=== PATIENT | female | born 1955 | race Caucasian/White ===

== ENCOUNTER 2017-07-16 03:51 | Observation (INO) ==
[2017-07-16] MEDS ORDERED: Aspirin 325 MG TABLET PO ONE (04:14)
[2017-07-16 04:32] LABS: INR 1.1; Prothrombin Time 12.2 Seconds (9.4-12.1)
[2017-07-16 04:33] LABS: Basophils # 0.1 K/mcL (0.0-0.2); Basophils % 1.2 %; Eosinophils # 0.1 K/mcL (0.0-0.6); Eosinophils % 2.4 %; Hematocrit 35.2 % (35.3-44.9); Hemoglobin 11.8 g/dL (11.5-15.4); Immature Granulocytes % 0.3 % (0-4); Lymphocytes # 1.6 K/mcL (0.6-4.6); Mean Corpuscular HGB Conc 33.5 g/dL (31.6-35.5); Mean Corpuscular Hemoglobin 32.5 pg (28.0-33.3); Mean Platelet Volume 10.2 fL (9.4-12.4); Monocytes # 0.5 K/mcL (0.0-1.3); Monocytes % 8.7 %; Neutrophils # 3.4 K/mcL (1.6-8.9); Platelet Count 295 K/mcL (140-400); Red Blood Count 3.63 M/mcL (3.82-4.97); Red Cell Distribution Width 12.4 % (11.5-14.5); Segmented Neutrophils % 59.4 %
[2017-07-16 04:34] LABS: Activated Partial Thrombo Time 33.4 Seconds (26.0-36.0)
[2017-07-16 04:39] LABS: BUN/Creatinine Ratio 20 (6-26); Blood Urea Nitrogen 18 mg/dL (7-20); Calcium 9.6 mg/dL (8.6-10.8); Carbon Dioxide 23 mEq/L (19-29); Chloride 107 mEq/L (98-109); Glucose 103 mg/dL (70-99); Osmolality,Calculated 296 (280-300); Potassium 3.9 mEq/L (3.5-4.5); Sodium 142 mEq/L (136-145); eGFR For African Americans > 60 (> 60); eGFR For Non-African Americans > 60 (> 60)
--- NOTE | 2017-07-16 04:59 | Emergency Department Note ---
Disposition Clinical Impression: Near syncope Chest pain Qualifiers: Chest pain type: unspecified Qualified Code(s): R07.9 - Chest pain, unspecified Disposition: Admitted As Inpatient Condition: Fair Referrals: Claudio Tate MD [Primary Care Provider] - Forms: ED Satisfaction Letter Time of Disposition: 06:42 Chest Pain HPI - General Chief Complaint: ED Chest Pain Stated Complaint: Chest Pain Time Seen by Provider: 07/16/17 03:56 Source: patient Limitations: no limitations Vital Signs Reviewed: Yes Nursing Notes Reviewed: Yes - History of Present Illness HPI Narrative: 61-year-old female history of hypertension, CAD, GERD, hyperlipidemia diabetes, presents with chest pain. Patient was actually being evaluated after she had seen her son in the emergency department, she got up felt flushed short of breath diaphoretic and had left-sided chest pain radiating into her left back and arm. She described this as 8 out of 10, worse with standing and activity. States that it may be anxiety related. She has not had a recent stress test or catheterization. She has had multiple ablations for atrial fibrillation, she is anticoagulated on Xarelto. no hx of DVTs or PEs. 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 Denies: vomiting, sense of impending doom - Related Data Home Medications Medication Instructions Recorded Confirmed Aromatic Cascara Fluid Extract 450 mg PO HS 03/19/16 07/16/17 [Cascara Sagrada] Aspirin Enteric Coated [Aspirin EC] 81 mg PO DAILY 03/19/16 07/16/17 Atorvastatin Calcium [Lipitor] 20 mg PO HS 03/19/16 07/16/17 Calcium Carbonate [Calcium] 250 mg PO DAILY 03/19/16 07/16/17 Diltiazem HCl [Diltiazem ER] 180 mg PO HS 03/19/16 07/16/17 Duloxetine HCl [Cymbalta] 90 mg PO DAILY 03/19/16 07/16/17 Furosemide [Lasix] 40 mg PO DAILY 03/19/16 07/16/17 Gabapentin [Neurontin] 300 mg PO TID 03/19/16 07/16/17 Lactobacillus Acidophilus 1 tab PO DAILY 03/19/16 07/16/17 [Probiotic] Losartan Potassium [Cozaar] 100 mg PO DAILY 03/19/16 07/16/17 Multivitamin [Multi-Day Vitamins] 0.5 tab PO BID 03/19/16 07/16/17 Omeprazole [PriLOSEC] 40 mg PO DAILY 03/19/16 07/16/17 Potassium Chloride [K-Tab ER] 20 meq PO DAILY 03/19/16 07/16/17 Rivaroxaban [Xarelto] 20 mg PO DAILY 03/19/16 07/16/17 Tizanidine HCl 8 mg PO HS 03/19/16 07/16/17 Trazodone HCl 50 - 100 mg PO HS PRN 03/19/16 07/16/17 Acetaminophen [Non-Aspirin] 325 mg PO Q6H 07/16/17 07/16/17 Amitriptyline [Elavil] 25 mg PO HS 07/16/17 07/16/17 Cholecalciferol (D-3) [Vitamin D] 2,000 unit PO DAILY 07/16/17 07/16/17 Ferrous Gluconate 324 mg PO BID 07/16/17 07/16/17 Sotalol [Betapace] 80 mg PO Q12HR 07/16/17 07/16/17 Tolterodine LA (24 HR) [Detrol LA] 2 mg PO DAILY 07/16/17 07/16/17 Previous Rx's Medication Instructions Recorded Ondansetron [Zofran] 4 mg PO Q8HR PRN #15 tablet 03/23/16 Allergies Allergy/AdvReac Type Severity Reaction Status Date / Time Sulfa (Sulfonamide Allergy See Verified 07/16/17 03:52 Antibiotics) Comments All systems ED: reviewed and negative except as stated. Review of Systems: As Per HPI Constitutional: Denies: fever, chills Eyes: Denies: eye pain ENT ED: Denies: ear pain Cardiovascular: Reports: as per HPI, chest pain, palpitations Respiratory: Reports: as per HPI, cough, dyspnea Gastrointestinal: Denies: abdominal pain, nausea Genitourinary: Denies: urgency Musculoskeletal: Denies: back pain Integumentary: Denies: rash, abrasion Neurological: Denies: headache Chest Pain PMH - Past Medical History Medical history: Reports: arthritis, atrial fibrillation, coronary artery disease, GERD, hyperlipidemia, hypertension Surgical history: Reports: cholecystectomy, hysterectomy, orthopedic, other, other Psychiatric history: Reports: anxiety, depression TRANSPORTATION ASSOCIATE history: 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 Neck: normal inspection, neck is supple, no JVD Resp: normal chest inspection, CTA bilaterally, no resp distress, no wheezes/ rales/rhonchi CV: RRR, no murmurs/gallops/rubs, S1 and S2 heard Extremity: +2 bilateral radial and posterial tibial pulses, no pedal edema GI: normal inspection, Soft, NTND, no peritoneal signs, no palpable abdominal aortic aneurysm Back: normal inspection, no tenderness to palpation Neuro: A&O3, no gross motor or sensory deficits bilaterally MSK: normal inspection, bilateral UE and LE with normal ROM mild ecchymosis to the right shoulder with good range of motion negative apprehension test Skin: No rashes, skin warm, dry, intact - General Limitations: no limitations General appearance: alert Course Course Narrative: 61-year-old female with near syncope and chest pain in the emergency department , chest pain workup with CBC BMP troponin EKG chest x-ray ordered as well as right shoulder given that she fallen about a week ago on her right shoulder there is no deformity - Reevaluation(s) Reevaluation #1: Patient's chest pain workup is negative, she is admitted to the hospitalist service in stable condition telemetry, nitroglycerin did nitroglycerin did improve her pain, she was given aspirin troponin negative EKG with no ischemic changes Vital Signs Temperature 98.3 F 07/16/17 03:53 Pulse Rate 81 07/16/17 03:53 Respiratory Rate 18 07/16/17 03:53 Blood Pressure 127/73 07/16/17 03:53 O2 Sat by Pulse Oximetry 98 07/16/17 03:53 Temperature 98.3 F 07/16/17 03:53 Pulse Rate 67 07/16/17 05:45 Respiratory Rate 16 07/16/17 05:45 Blood Pressure 129/83 07/16/17 05:45 O2 Sat by Pulse Oximetry 98 07/16/17 05:45 Oxygen Delivery Oxygen Delivery Room Air Chest Pain - Differential Diagnosis Likely: pneumothorax, atypical chest pain, chest pain - Medical Records Medical records reviewed: Yes I reviewed the patient's medical records. - Lab Data Lab results reviewed: Yes I reviewed the patient's lab results. Result diagrams: 07/16/17 04:05 07/16/17 04:05 Lab Results 07/16/17 07/16/17 07/16/17 Range/Units 04:05 04:05 04:05 WBC 5.8 (4.3-11.1) K/mcL RBC 3.63 L (3.82-4.97) M/mcL Hgb 11.8 (11.5-15.4) g/dL Hct 35.2 L (35.3-44.9) % MCV 97.0 (83.0-100.0) fL MCH 32.5 (28.0-33.3) pg MCHC 33.5 (31.6-35.5) g/dL RDW 12.4 (11.5-14.5) % Plt Count 295 (140-400) K/mcL MPV 10.2 (9.4-12.4) fL Immature Gran % 0.3 (0-4) % Seg Neutrophils % 59.4 % Lymphocytes % 28.0 % Monocytes % 8.7 % Eosinophils % 2.4 % Basophils % 1.2 % Neutrophils # 3.4 (1.6-8.9) K/mcL Lymphocytes # 1.6 (0.6-4.6) K/mcL Monocytes # 0.5 (0.0-1.3) K/mcL Eosinophils # 0.1 (0.0-0.6) K/mcL Basophils # 0.1 (0.0-0.2) K/mcL PT 12.2 H (9.4-12.1) Seconds INR 1.1 APTT 33.4 (26.0-36.0) Seconds D-Dimer 220 (0-500) ng/mLFEU Sodium 142 (136-145) mEq/L Potassium 3.9 (3.5-4.5) mEq/L Chloride 107 (98-109) mEq/L Carbon Dioxide 23 (19-29) mEq/L BUN 18 (7-20) mg/dL Creatinine 0.91 (0.57-1.11) mg/dL Est GFR ( Amer) > 60 (> 60) Est GFR (Non-Af Amer) > 60 (> 60) BUN/Creatinine Ratio 20 (6-26) Glucose 103 H (70-99) mg/dL Calculated Osmolality 296 (280-300) Calcium 9.6 (8.6-10.8) mg/dL Troponin I (0-0.03) ng/mL 07/16/17 Range/Units 04:05 WBC (4.3-11.1) K/mcL RBC (3.82-4.97) M/mcL Hgb (11.5-15.4) g/dL Hct (35.3-44.9) % MCV (83.0-100.0) fL MCH (28.0-33.3) pg MCHC (31.6-35.5) g/dL RDW (11.5-14.5) % Plt Count (140-400) K/mcL MPV (9.4-12.4) fL Immature Gran % (0-4) % Seg Neutrophils % % Lymphocytes % % Monocytes % % Eosinophils % % Basophils % % Neutrophils # (1.6-8.9) K/mcL Lymphocytes # (0.6-4.6) K/mcL Monocytes # (0.0-1.3) K/mcL Eosinophils # (0.0-0.6) K/mcL Basophils # (0.0-0.2) K/mcL PT (9.4-12.1) Seconds INR APTT (26.0-36.0) Seconds D-Dimer (0-500) ng/mLFEU Sodium (136-145) mEq/L Potassium (3.5-4.5) mEq/L Chloride (98-109) mEq/L Carbon Dioxide (19-29) mEq/L BUN (7-20) mg/dL Creatinine (0.57-1.11) mg/dL Est GFR ( Amer) (> 60) Est GFR (Non-Af Amer) (> 60) BUN/Creatinine Ratio (6-26) Glucose (70-99) mg/dL Calculated Osmolality (280-300) Calcium (8.6-10.8) mg/dL Troponin I 0.01 (0-0.03) ng/mL - Radiology Data Radiology results reviewed: Yes I reviewed the patient's radiology results. Chest X-Ray 07/16/17 03:56 IMPRESSION: No acute cardiopulmonary process. D/ / Elvira Xiao MD / Elvira Xiao MD Interpreting Provider: Elvira Xiao MD Shoulder X-Ray 07/16/17 04:15 IMPRESSION: No acute osseous abnormality of the right shoulder. D/ / Chris Nieto MD / Chris Nieto MD Interpreting Provider: Chris Nieto MD - EKG Data EKG attestation: Yes I reviewed and interpreted this EKG. Rate: normal Rhythm: NSR (Vent rate 80 ME-2 O4 QRS 115 QTc 425 unchanged from previous EKG in May no ST segment elevations or depressions.) Heart Score - Score History: Moderately Suspicious EKG: Non Specific repolarisation Disturbance Age: 45-65 Risk Factors: Equal/Greater than 3 risk factor or history of atherosclerotic disease Troponin: Less than normal limit HEART Score Total: 5 Attestation Statement - Attestation Attestation: I, Matt Martin, examined this patient and my medical decision-making was reviewed with the TROUBLE TRACER/PA/Advanced Practice Nurse/Resident Physician. I agree with the documented findings, disposition and treatment plan as described except to the extent set forth below. 61-year-old female being evaluated in the emergency department for acute onset chest pain. Patient was in the emergency department with her son who likely has sepsis when she acutely developed chest pain to the left upper chest that radiated to her left shoulder. She had associated shortness of breath and nausea. Patient has a history of coronary artery disease. She is unable to recall the last time she had a stress test or cardiac catheterization. Initial troponin negative. EKG did not show evidence of STEMI. Patient will be admitted for further care and evaluation of her acute onset chest pain.
[2017-07-16] MEDS: Nitroglycerin 0.4 MG TAB.SUBL SL PRN ×3 (05:17→05:32)
[2017-07-16] MEDS ORDERED: *HR* LORazepam 0.5 MG TABLET PO ONE (10:21)
--- NOTE | 2017-07-16 12:20 | Internal Med History&Physical ---
Date of Encounter: 07/16/17 Time of Encounter: 10:00 Assessment and Plan (1) Chest pain Current visit: Yes Status: Acute -First set of cardiac biomarkers are negative and EKG with no ST/T-wave changes -Suspect secondary to anxiety/panic attacks. -We will trend cardiac biomarkers and monitor on telemetry; treat anxiety as below Qualifiers: Chest pain type: unspecified Qualified Code(s): R07.9 - Chest pain, unspecified (2) Generalized anxiety disorder Current visit: Yes Status: Acute -Suspect symptoms secondary to panic attacks. -Will give patient Ativan as needed. (3) H/O repair of right rotator cuff Current visit: No Status: Acute -Chronic pain which is stable (4) Lumbar radicular pain Current visit: No Status: Acute -Chronic lower back pain that is stable (5) Morbid obesity with BMI of 40.0-44.9, adult Current visit: No Status: Acute -Lifestyle modifications (6) DVT prophylaxis Current visit: Yes Status: Acute -Subcutaneous heparin Internal Medicine - H&P: HPI Chief complaint: Chest pain Admitted From: Home History of present illness: Patient is a 61-year-old female with past medical history significant for anxiety, hypertension, coronary artery disease, hyperlipidemia, diabetes and GERD results to the ER on 07/16/17 with chest pain. Patient reports of substernal chest discomfort which was provoked by social stressors as her son was just admitted to the hospital today. Patient admits of being admitted in the hospital in the past for panic attacks and reports of increased anxiety over the last several weeks. In the ER the first set of cardiac biomarkers were negative and no ST/T-wave changes on EKG. Patient will be admitted to the medical surgical floor for ACS rule out. Past Med Surg Social Fam HX - Past Medical History Medical history: arthritis, atrial fibrillation, coronary artery disease, GERD, hyperlipidemia, hypertension Psychiatric history: anxiety, depression - Past Surgical History Surgical History: cholecystectomy, hysterectomy, orthopedic, other - Social History Smoking Status: Never smoker Smokeless Tobacco Status: No Alcohol use: occasionally Drug use: none - Family History Sister Living Status: Age at : 43 Cause of : Breast CA Hx Family Cancer: Yes Internal Medicine - H&P: Meds Aromatic Cascara Fluid Extract [Cascara Sagrada] 450 mg PO HS 03/19/16 [History] Aspirin Enteric Coated [Aspirin EC] 81 mg PO DAILY 03/19/16 [History] Atorvastatin Calcium [Lipitor] 20 mg PO HS 03/19/16 [History] Calcium Carbonate [Calcium] 250 mg PO DAILY 03/19/16 [History] Diltiazem HCl [Diltiazem ER] 180 mg PO HS 03/19/16 [History] Duloxetine HCl [Cymbalta] 90 mg PO DAILY 03/19/16 [History] Furosemide [Lasix] 40 mg PO DAILY 03/19/16 [History] Gabapentin [Neurontin] 300 mg PO TID 03/19/16 [History] Lactobacillus Acidophilus [Probiotic] 1 tab PO DAILY 03/19/16 [History] Losartan Potassium [Cozaar] 100 mg PO DAILY 03/19/16 [History] Multivitamin [Multi-Day Vitamins] 0.5 tab PO BID 03/19/16 [History] Omeprazole [PriLOSEC] 40 mg PO DAILY 03/19/16 [History] Potassium Chloride [K-Tab ER] 20 meq PO DAILY 03/19/16 [History] Rivaroxaban [Xarelto] 20 mg PO DAILY 03/19/16 [History] Tizanidine HCl 8 mg PO HS 03/19/16 [History] Trazodone HCl 50 - 100 mg PO HS PRN 03/19/16 [History] Ondansetron [Zofran] 4 mg PO Q8HR PRN #15 tablet 03/23/16 [Rx] Amitriptyline [Elavil] 25 mg PO HS 07/16/17 [History] Cholecalciferol (D-3) [Vitamin D] 2,000 unit PO DAILY 07/16/17 [History] Ferrous Gluconate 324 mg PO BID 07/16/17 [History] Sotalol [Betapace] 80 mg PO Q12HR 07/16/17 [History] Tolterodine LA (24 HR) [Detrol LA] 2 mg PO DAILY 07/16/17 [History] 3 Allergy/AdvReac Type Severity Reaction Status Date / Time Sulfa (Sulfonamide Allergy See Verified 07/16/17 03:52 Antibiotics) Comments All Systems PM: A 10-system review of systems was performed and is negative for pertinent findings except as documented above in the HPI. - Constitutional Vitals: Temp Pulse Resp BP Pulse Ox 98.3 F 73 17 143/72 97 07/16/17 11:21 07/16/17 11:21 07/16/17 12:09 07/16/17 12:09 07/16/17 11:21 General appearance: Present: A&O X 3, no acute distress - Head Head exam: Present: normocephalic - Eye Eye exam: Present: normal appearance - ENT ENT exam: Present: mucous membranes moist - Respiratory Respiratory exam: Present: CTAB. Absent: accessory muscle use, rales, rhonchi, wheezes - Cardiovascular Cardiovascular exam: Present: RRR, +S1, +S2. Absent: diastolic murmur, gallop, rubs, systolic murmur - GI/Abdominal GI/Abdominal exam: Present: normal bowel sounds, soft, no peritoneal signs. Absent: distended, tenderness - Neurological Exam Neurological exam: Present: CN II-XII intact, oriented X3 - Psychiatric Psychiatric exam: Present: anxious - Skin Skin exam: Present: normal color Internal Med - H&P Results - Labs CBC & Chem 7: 07/16/17 04:05 07/16/17 04:05 Labs: Cardiac Enzymes 07/16/17 Range/Units 10:43 Troponin I 0.00 (0-0.03) ng/mL
[2017-07-16] MEDS ORDERED: Naloxone 0.4 MG/ML INJ IVP PRN (12:27)
[2017-07-16] MEDS ORDERED: Ondansetron ODT 4 MG TAB.RAPDIS PO PRN (15:41)
[2017-07-16] MEDS ORDERED: Ketorolac 15 MG/ML VIAL IVP ONE (16:12)
[2017-07-16] MEDS: tiZANidine 4 MG TABLET PO SCH (21:03)
[2017-07-16] MEDS: Gabapentin 300 MG CAPSULE PO SCH (21:03)
[2017-07-16] MEDS: *HR* Morphine 2 MG/ML SYRINGE IVP PRN (21:03)
[2017-07-16] MEDS: Multivit/Ca/Min/Fe/FA 1 TAB TABLET PO SCH (21:03)
[2017-07-16] MEDS: Diltiazem CD (24hr) 180 MG CAPSULE PO SCH (21:03)
[2017-07-16] MEDS: [UNRECOGNIZED DRUG - OTHER] PO SCH (21:08)
[2017-07-17 01:24] LABS: Basophils # 0.1 K/mcL (0.0-0.2); Basophils % 1.1 %; Eosinophils # 0.1 K/mcL (0.0-0.6); Eosinophils % 2.2 %; Hematocrit 31.5 % (35.3-44.9); Hemoglobin 10.3 g/dL (11.5-15.4); Immature Granulocytes % 0.4 % (0-4); Lymphocytes # 1.2 K/mcL (0.6-4.6); Lymphocytes % 26.8 %; Mean Corpuscular HGB Conc 32.7 g/dL (31.6-35.5); Mean Corpuscular Hemoglobin 31.8 pg (28.0-33.3); Mean Corpuscular Volume 97.2 fL (83.0-100.0); Mean Platelet Volume 11.1 fL (9.4-12.4); Monocytes # 0.6 K/mcL (0.0-1.3); Neutrophils # 2.6 K/mcL (1.6-8.9); Platelet Count 228 K/mcL (140-400); Red Blood Count 3.24 M/mcL (3.82-4.97); Red Cell Distribution Width 12.4 % (11.5-14.5); Segmented Neutrophils % 56.5 %
[2017-07-17 01:37] LABS: BUN/Creatinine Ratio 18 (6-26); Blood Urea Nitrogen 19 mg/dL (7-20); Calcium 9.1 mg/dL (8.6-10.8); Carbon Dioxide 22 mEq/L (19-29); Chloride 108 mEq/L (98-109); Glucose 101 mg/dL (70-99); Osmolality,Calculated 292 (280-300); Potassium 4.1 mEq/L (3.5-4.5); Sodium 140 mEq/L (136-145); eGFR For African Americans > 60 (> 60); eGFR For Non-African Americans 52 (> 60)
[2017-07-17] MEDS: *HR* Morphine 2 MG/ML SYRINGE IVP PRN (03:28)
--- NOTE | 2017-07-17 06:49 | Electrocardiograph Report ---
[place] [address] Test Date: 2017-07-16 Pat Name: Dhara Busby Department: 103 Room: 3B35 Gender: F Mdm Sr: GINNY : 1955 Requested By: Matt Martin Order Number: [id number] Reading MD: Keyanna Tovar Measurements Intervals [place] Rate: 80 P: 81 DE: 204 QRS: -11 QRSD: 115 T: 66 QT: 389 QTc: 425 Interpretive Statements SINUS RHYTHM POSSIBLE ANTERIOR MYOCARDIAL INFARCTION [30 ms Q WAVE IN V3/V4, OR R < 0.2 mV IN V4], OF INDETERMINATE AGE Electronically Signed On 07-17-2017 6:46:56 EST by Keyanna Tovar
[2017-07-17] MEDS ORDERED: GI Cocktail 40 ML EACH PO ONE (09:44)
[2017-07-17] MEDS: Furosemide 40 MG TABLET PO SCH (09:46)
[2017-07-17] MEDS: Aspirin Enteric Coated 81 MG Tablet PO SCH (09:46)
[2017-07-17] MEDS: Multivit/Ca/Min/Fe/FA 1 TAB TABLET PO SCH (09:46)
[2017-07-17] MEDS: *HR* Rivaroxaban 10 MG TABLET PO SCH (09:46)
[2017-07-17] MEDS: Lactobacillus 1 EACH CAP.SPRINK PO SCH (09:46)
[2017-07-17] MEDS: Gabapentin 300 MG CAPSULE PO SCH ×3 (09:46→20:31)
[2017-07-17] MEDS: Cholecalciferol (D-3) 1,000 UNIT TABLET PO SCH (09:46)
[2017-07-17] MEDS ORDERED: MOM Conc 10 ML UD.LIQ PO ONE (13:02)
[2017-07-17] MEDS: Acetaminophen 325 MG TABLET PO PRN (13:13)
[2017-07-17] MEDS ORDERED: traZODone 50 MG TABLET PO PRN (14:41)
--- NOTE | 2017-07-17 14:44 | Internal Med Progress Note ---
Date of Encounter: 07/17/17 Time of Encounter: 09:25 - Assessment and plan (1) Chest pain Current Visit: Yes Status: Acute Assessment and plan: The patient reports 2-3 week history of left upper quadrant tenderness/pain. She describes it as feeling sore/tight. Is exquisitely tender to palpation. She also reports midsternal chest pain that radiates inferiorly into epigastric area and into left upper quadrant. She reports associated nausea, diaphoresis, and shortness of breath with the pain. She reports that it does not happen daily and there may be some significance in relation to food. The pain also sometimes radiates into her left posterior shoulder/scapula area. He has attempted a GI cocktail for relief today. It was not successful. She already takes PPI daily. She does report a significant cardiac history on her maternal side. Father when she was 3 years old and is unsure of his history. Recently sister of [place], mother also with coronary artery disease. Patient reports increased fatigue for several months. Also reports significant stressors at home that could be contributing to chest pain. Onset of this episode of chest pain was while she was visiting her son who is also admitted on this unit for a viral illness, I believe. Her troponins were negative 3. EKG was normal sinus rhythm with a rate of 80, report indicates possible prior [place]. Echo results are still pending. I have ordered a limited echo today. I feel due to her family history, as well as her risk factors including obesity, age, female, as well as hypertension, stress test would bE appropriate. Pt has been requesting Morphine throughout the day for what appears to be abdominal pain. Continue Omeprazole Stress test ordered for a.m. 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 pt has had rotator cuff repair to same. Pt reports increased discomfort and agrees that it is most likely from lying in the bed for so long. I have encouraged pt to get up and move about, sit it chair. Home medications have been continued. Pt has been requesting Morphine for pain. Continue medications as ordered. (3) Morbid obesity with BMI of 40.0-44.9, adult Current Visit: Yes Status: Chronic Assessment and plan: Chronic. Lifestyle changes. (4) Generalized anxiety disorder Current Visit: Yes Status: Acute Assessment and plan: Chronic. Continue home medications. Patient reports increased stress at home with family. Son was admitted to the hospital on the same unit, this patient's chest pain began. (5) DVT prophylaxis Current Visit: Yes Status: Acute Assessment and plan: Heparin subcutaneous daily. - Time Spent With Patient less than 15 minutes - Subjective Interval history: Pt was seen and assessed at 925 am. at bs. Pt reports LUQ tenderness and pain, also describes as sore/tight for 2 weeks. Pt also reports intermittent substernal pain with radiation inferior to epigastric area and to LUQ where she indicates pain is, sometimes with radiation to left posterior shoulder/scapula area. She reports associated nausea, diaphoresis, and SOB with pain. Indicates that there may be some relation to food. She also reports increased fatigue and social stressors for months. - Constitutional Vitals: Temp Pulse Resp BP Pulse Ox 98.1 F 64 16 146/84 97 07/17/17 10:54 07/17/17 10:54 07/17/17 10:54 07/17/17 10:54 07/17/17 10:54 General appearance: Present: cooperative, A&O X 3, no acute distress, answers questions appropriately - Head Head exam: Present: atraumatic, normal inspection, normocephalic - Eye Eye exam: Present: conjuntiva pink, sclera anicteric - Neck Neck exam general surgery: Present: normal inspection, supple, trachea midline. Absent: lymphadenopathy, tenderness - Respiratory Respiratory exam: Present: CTAB. Absent: accessory muscle use, chest wall tenderness, rales, respiratory distress, rhonchi, wheezes - Cardiovascular Cardiovascular exam: Present: RRR, +S1, +S2. Absent: diastolic murmur, gallop, rubs, systolic murmur - GI/Abdominal GI/Abdominal exam: Present: normal bowel sounds, soft, tenderness. Absent: distended, hepatomegaly - Extremities Exam Extremities exam: Present: normal capillary refill, warm, radial pulses palpable and symmetrical. Absent: calf tenderness, cyanotic, pedal edema, tenderness - Neurological Exam Neurological exam: Present: alert, oriented X3, no focal deficits. Absent: facial droop, speech deficit - Skin Skin exam: Present: dry, intact, normal color, warm. Absent: rash Internal Medicine: Result - Labs CBC & Chem 7: 07/17/17 00:30 07/17/17 00:30 Labs: Short CBC 07/17/17 Range/Units 00:30 WBC 4.6 (4.3-11.1) K/mcL Hgb 10.3 L D (11.5-15.4) g/dL Hct 31.5 L (35.3-44.9) % Plt Count 228 (140-400) K/mcL Neutrophils # 2.6 (1.6-8.9) K/mcL BMP 07/17/17 00:30 Sodium 140 Potassium 4.1 Chloride 108 Carbon Dioxide 22 BUN 19 Creatinine 1.07 Glucose 101 H Calcium 9.1 Cardiac Enzymes 07/16/17 07/16/17 07/17/17 Range/Units 16:24 22:08 00:30 Troponin I 0.00 0.00 0.00 (0-0.03) ng/mL - ABG Interpretation ABG results: PT/INR, D-dimer PT 12.2 Seconds (9.4-12.1) H 07/16/17 04:05 D-Dimer 220 ng/mLFEU (0-500) 07/16/17 04:05 Consult Discharge Plan - Plan Referrals: Claudio Tate MD [Primary Care Provider] -
[2017-07-17] MEDS: [UNRECOGNIZED DRUG - OTHER] PO SCH (20:29)
[2017-07-17] MEDS: Diltiazem CD (24hr) 180 MG CAPSULE PO SCH (20:31)
[2017-07-17] MEDS: tiZANidine 4 MG TABLET PO SCH (20:31)
[2017-07-17] MEDS ORDERED: Ketorolac 30 MG/ML VIAL IVP ONE (22:22)
[2017-07-18 05:14] LABS: Basophils # 0.1 K/mcL (0.0-0.2); Basophils % 0.9 %; Eosinophils # 0.1 K/mcL (0.0-0.6); Eosinophils % 2.4 %; Hematocrit 33.2 % (35.3-44.9); Hemoglobin 10.7 g/dL (11.5-15.4); Immature Granulocytes % 0.4 % (0-4); Lymphocytes # 1.3 K/mcL (0.6-4.6); Mean Corpuscular HGB Conc 32.2 g/dL (31.6-35.5); Mean Corpuscular Hemoglobin 31.3 pg (28.0-33.3); Mean Corpuscular Volume 97.1 fL (83.0-100.0); Mean Platelet Volume 10.2 fL (9.4-12.4); Monocytes # 0.5 K/mcL (0.0-1.3); Neutrophils # 3.4 K/mcL (1.6-8.9); Platelet Count 255 K/mcL (140-400); Red Blood Count 3.42 M/mcL (3.82-4.97); Red Cell Distribution Width 12.3 % (11.5-14.5); Segmented Neutrophils % 63.3 %
[2017-07-18 05:21] LABS: Hemoglobin A1C 4.5 %
[2017-07-18 05:26] LABS: BUN/Creatinine Ratio 18 (6-26); Blood Urea Nitrogen 17 mg/dL (7-20); Carbon Dioxide 24 mEq/L (19-29); Chloride 110 mEq/L (98-109); Glucose 93 mg/dL (70-99); Osmolality,Calculated 297 (280-300); Potassium 4.2 mEq/L (3.5-4.5); Sodium 143 mEq/L (136-145); eGFR For African Americans > 60 (> 60); eGFR For Non-African Americans > 60 (> 60)
[2017-07-18] MEDS ORDERED: Regadenoson 0.4 MG/5 ML SYRINGE IVP ONE (07:13)
[2017-07-18] MEDS: Furosemide 40 MG TABLET PO SCH (10:22)
[2017-07-18] MEDS: Gabapentin 300 MG CAPSULE PO SCH ×3 (10:22→21:32)
[2017-07-18] MEDS: Acetaminophen 325 MG TABLET PO PRN (10:22)
[2017-07-18] MEDS: Aspirin Enteric Coated 81 MG Tablet PO SCH (10:22)
[2017-07-18] MEDS: *HR* Rivaroxaban 10 MG TABLET PO SCH (10:22)
[2017-07-18] MEDS: Tolterodine LA (24 HR) 2 MG CAP.ER.24H PO SCH (10:22)
[2017-07-18] MEDS: Lactobacillus 1 EACH CAP.SPRINK PO SCH (10:23)
[2017-07-18] MEDS: Cholecalciferol (D-3) 1,000 UNIT TABLET PO SCH (10:23)
[2017-07-18] MEDS: Multivit/Ca/Min/Fe/FA 1 TAB TABLET PO SCH (10:23)
[2017-07-18] MEDS: Famotidine 20 MG TABLET PO SCH ×2 (11:30→21:32)
[2017-07-18] MEDS: Sucralfate 1 GM TABLET PO SCH ×3 (11:30→21:32)
[2017-07-18] MEDS: traMADol 50 MG TABLET PO PRN ×2 (13:36→21:53)
--- NOTE | 2017-07-18 16:04 | Internal Med Progress Note ---
Date of Encounter: 07/18/17 Time of Encounter: 09:10 - Assessment and plan (1) Chest pain Current Visit: Yes Status: Acute Assessment and plan: The patient reports 2-3 week history of left upper quadrant tenderness/pain. She describes it as feeling sore/tight. Is exquisitely tender to palpation. She also reports midsternal chest pain that radiates inferiorly into epigastric area and into left upper quadrant. She reports associated nausea, diaphoresis, and shortness of breath with the pain. She reports that it does not happen daily and there may be some significance in relation to food. The pain also sometimes radiates into her left posterior shoulder/scapula area. Pain is reproducible with palpation to left upper chest. He has attempted a GI cocktail for relief today. It was successful, pt reports relief. Pt reports relief with bowel movement. She already takes PPI daily, added Prilosec and Carafate. She does report a significant cardiac history on her maternal side. Father when she was 3 years old and is unsure of his history. Recently sister of [place], mother also with coronary artery disease. Patient reports increased fatigue for several months. Also reports significant stressors at home that could be contributing to chest pain. She denies n/v/d, diaphoresis, SOB, headache, dizziness, she denies fever or chills. Onset of this episode of chest pain was while she was visiting her son who is also admitted on this unit for a viral illness. Her troponins were negative 3. EKG was normal sinus rhythm with a rate of 80, report indicates possible prior [place]. Echo with LVEF of 60%, mild concentric LV hypertrophy, moderate LV DD, grossly, mildly calcified aortic valve leaflets, mild AR, mild left ear and no evidence of pulmonary hypertension. I feel due to her family history, as well as her risk factors including obesity , age, female, as well as hypertension, stress test would bE appropriate. Pt has been requesting Morphine throughout the day for what appears to be abdominal pain. Continue Omeprazole, Prilosec, and Carafate Stress test ordered for a.m, pt is 2 day stress test. Consider cardiology consult based on results Continue core cutter labs and vitals Qualifiers: Chest pain type: unspecified Qualified Code(s): R07.9 - Chest pain, unspecified (2) Chronic right shoulder pain Current Visit: Yes Status: Acute Assessment and plan: Pt reports pain to right shoulder. pt has had rotator cuff repair to same. Pt reports increased discomfort and agrees that it is most likely from lying in the bed for so long. I have encouraged pt to get up and move about, sit it chair. Home medications have been continued. Pt has been requesting Morphine for pain. Also states that she has gotten relief from Toradol. Due to interactions with other medications, pt will be given Ultram. Continue medications as ordered. (3) Morbid obesity with BMI of 40.0-44.9, adult Current Visit: Yes Status: Chronic Assessment and plan: Chronic. Lifestyle changes. (4) Generalized anxiety disorder Current Visit: Yes Status: Acute Assessment and plan: Chronic. Continue home medications. Patient reports increased stress at home with family. (5) DVT prophylaxis Current Visit: Yes Status: Acute Assessment and plan: Heparin subcutaneous daily, pt has been ambulatory (6) GERD (gastroesophageal reflux disease) Current Visit: Yes Status: Acute Assessment and plan: Pt reports burning in chest, intermittently, as well as sharp pains from midsternal chest to epigastric area to RUQ. Epigastric area tender to palpation yesterday. Pt reports heartburn sensation at times and sometimes relation to food. Pt already takes Omeprazole. Pepcid has been added, as well as Carafate. She received some relief from pain with GI cocktail. Pt will follow up with GI after discharge. Qualifiers: Esophagitis presence: esophagitis presence not specified Qualified Code(s) : K21.9 - Gastro-esophageal reflux disease without esophagitis - Time Spent With Patient less than 15 minutes - Subjective Interval history: Pt was seen and assessed at 910 am. Pt reports LUQ tenderness and pain is better , states that she got relief from GI Cocktail and had a bowel movement. She states that she has not had any chest pain and tolerated first day of stress test well. She denies SOB, diaporesis, n/v/d, or headache. - Constitutional Vitals: Temp Pulse Resp BP Pulse Ox 98.0 F 67 16 129/71 98 07/18/17 15:09 07/18/17 15:09 07/18/17 15:09 07/18/17 15:09 07/18/17 15:09 General appearance: Present: cooperative, A&O X 3, morbidly obese, pleasant, no acute distress, answers questions appropriately - Head Head exam: Present: atraumatic, normal inspection, normocephalic - Eye Eye exam: Present: normal appearance, conjuntiva pink, sclera anicteric - Neck Neck exam general surgery: Present: normal inspection, supple, trachea midline. Absent: lymphadenopathy, tenderness - Respiratory Respiratory exam: Present: CTAB. Absent: accessory muscle use, chest wall tenderness, prolonged expiratory phase, rales, rhonchi, wheezes - Cardiovascular Cardiovascular exam: Present: RRR, +S1, +S2. Absent: diastolic murmur, gallop, rubs, systolic murmur - GI/Abdominal GI/Abdominal exam: Present: normal bowel sounds, soft, no peritoneal signs. Absent: distended, hepatomegaly, tenderness - Extremities Exam Extremities exam: Present: normal capillary refill, normal inspection, warm, radial pulses palpable and symmetrical. Absent: calf tenderness, cyanotic, pedal edema, tenderness - Neurological Exam Neurological exam: Present: alert, oriented X3, no focal deficits. Absent: altered, facial droop, speech deficit - Skin Skin exam: Present: dry, intact, normal color, warm. Absent: rash Internal Medicine: Result - Labs CBC & Chem 7: 07/18/17 04:43 07/18/17 04:43 Labs: Short CBC 07/18/17 Range/Units 04:43 WBC 5.4 (4.3-11.1) K/mcL Hgb 10.7 L (11.5-15.4) g/dL Hct 33.2 L (35.3-44.9) % Plt Count 255 (140-400) K/mcL Neutrophils # 3.4 (1.6-8.9) K/mcL BMP 07/18/17 04:43 Sodium 143 Potassium 4.2 Chloride 110 H Carbon Dioxide 24 BUN 17 Creatinine 0.92 Glucose 93 Calcium 9.0 - ABG Interpretation ABG results: PT/INR, D-dimer PT 12.2 Seconds (9.4-12.1) H 07/16/17 04:05 D-Dimer 220 ng/mLFEU (0-500) 07/16/17 04:05 Consult Discharge Plan - Plan Referrals: Claudio Tate MD [Primary Care Provider] -
[2017-07-18] MEDS ORDERED: Melatonin 3 MG TABLET PO SCH (21:00)
[2017-07-18] MEDS: Diltiazem CD (24hr) 180 MG CAPSULE PO SCH (21:32)
[2017-07-18] MEDS: tiZANidine 4 MG TABLET PO SCH (21:32)
[2017-07-18] MEDS: [UNRECOGNIZED DRUG - OTHER] PO SCH (21:55)
[2017-07-19] MEDS: Tolterodine LA (24 HR) 2 MG CAP.ER.24H PO SCH (10:36)
[2017-07-19] MEDS: traMADol 50 MG TABLET PO PRN (10:36)
[2017-07-19] MEDS: Multivit/Ca/Min/Fe/FA 1 TAB TABLET PO SCH (10:36)
[2017-07-19] MEDS: Aspirin Enteric Coated 81 MG Tablet PO SCH (10:37)
[2017-07-19] MEDS: Lactobacillus 1 EACH CAP.SPRINK PO SCH (10:37)
[2017-07-19] MEDS: *HR* Rivaroxaban 10 MG TABLET PO SCH (10:37)
[2017-07-19] MEDS: Gabapentin 300 MG CAPSULE PO SCH (10:37)
[2017-07-19] MEDS: Furosemide 40 MG TABLET PO SCH (10:38)
[2017-07-19] MEDS: Cholecalciferol (D-3) 1,000 UNIT TABLET PO SCH (10:38)
[2017-07-19] MEDS: Famotidine 20 MG TABLET PO SCH (10:38)
[2017-07-19] MEDS: Sucralfate 1 GM TABLET PO SCH ×2 (10:38→10:44)
--- NOTE | 2017-07-19 10:41 | Discharge Summary ---
Date of Encounter: 07/19/17 Time of Encounter: 08:45 - Discharge Diagnosis (1) Chest pain Priority: Primary Status: Acute Comments: The patient reports 2-3 week history of left upper quadrant tenderness/pain. She describes it as feeling sore/tight. Is exquisitely tender to palpation. She also reports midsternal chest pain that radiates inferiorly into epigastric area and into left upper quadrant. She reports associated nausea, diaphoresis, and shortness of breath with the pain. She reports that it does not happen daily and there may be some significance in relation to food. The pain also sometimes radiates into her left posterior shoulder/scapula area. Pain is reproducible with palpation to left upper chest. He has attempted a GI cocktail for relief today. It was successful, pt reports relief. Pt reports relief with bowel movement. She already takes Omeprazole daily, added Pepcid and Carafate. She does report a significant cardiac history on her maternal side. Father when she was 3 years old and is unsure of his history. Recently sister of [place], mother also with coronary artery disease. Patient reports increased fatigue for several months. Also reports significant stressors at home that could be contributing to chest pain. She denies n/v/d, diaphoresis, SOB, headache, dizziness, she denies fever or chills. Onset of this episode of chest pain was while she was visiting her son who is also admitted on this unit for a viral illness. Her troponins were negative 3. EKG was normal sinus rhythm with a rate of 80, report indicates possible prior [place]. Echo with LVEF of 60%, mild concentric LV hypertrophy, moderate LV DD, grossly, mildly calcified aortic valve leaflets, mild AR, mild left ear and no evidence of pulmonary hypertension. I feel due to her family history, as well as her risk factors including obesity , age, female, as well as hypertension, stress test would bE appropriate. Stress test was negative for ischemia or infarct, gated EF > 75%. Pt did have chest pain during stress, however, I saw her after she had returned, she states that chest pain had resolved. She denied fever, chills, headache, SOB, chest pain, n/v/d. Chest pain most likely due to anxiety and home stress, as well as GERD symptoms. Pt will be referred to GI for work up. Continue Omeprazole, Pepcid, and Carafate GI referral Qualifiers: Chest pain type: unspecified Qualified Code(s): R07.9 - Chest pain, unspecified (2) Chronic right shoulder pain Priority: Secondary Status: Chronic Comments: Pt reports pain to right shoulder. Pt has had rotator cuff repair to same. Pt reports increased discomfort and agrees that it is most likely from lying in the bed for so long. I have encouraged pt to get up and move about, sit it chair. Home medications have been continued. Pt has been requesting Morphine for pain. Also states that she has gotten relief from Toradol. Due to interactions with other medications, pt will be given Ultram. She received adequate relief. Continue home medications. (3) Morbid obesity with BMI of 40.0-44.9, adult Priority: Secondary Status: Chronic Comments: Chronic. Lifestyle changes. (4) Generalized anxiety disorder Priority: Secondary Status: Chronic Comments: Chronic. Continue home medications. Patient reports increased stress at home with family. Pt reports recent stress and has had difficulty completing [employer] shopping due to social anxiety and anxiety related to crowds. (5) DVT prophylaxis Priority: Secondary Status: Acute Comments: Heparin SQ daily, pt has also been ambulatory (6) GERD (gastroesophageal reflux disease) Priority: Secondary Status: Chronic Comments: Pt reports burning in chest, intermittently, as well as sharp pains from midsternal chest to epigastric area to RUQ. Epigastric area tender to palpation yesterday. Pt reports heartburn sensation at times and sometimes relation to food. Pt already takes Omeprazole. Pepcid has been added, as well as Carafate. She received some relief from pain with GI cocktail. Pt will follow up with GI after discharge. Qualifiers: Esophagitis presence: esophagitis presence not specified Qualified Code(s) : K21.9 - Gastro-esophageal reflux disease without esophagitis - Discharge Medications Prescriptions: Famotidine [Pepcid] 20 mg PO DAILY #30 tablet Melatonin 3 mg PO HS PRN #10 tablet PRN Reason: Insomnia Sucralfate [Carafate] 1 gm PO TIDAC #90 tablet Home Medications: Aromatic Cascara Fluid Extract [Cascara [place]] 450 mg PO HS 03/19/16 [History] Aspirin Enteric Coated [Aspirin EC] 81 mg PO DAILY 03/19/16 [History] Atorvastatin Calcium [Lipitor] 20 mg PO HS 03/19/16 [History] Calcium Carbonate [Calcium] 250 mg PO DAILY 03/19/16 [History] Diltiazem HCl [Diltiazem ER] 180 mg PO HS 03/19/16 [History] Duloxetine HCl [Cymbalta] 90 mg PO DAILY 03/19/16 [History] Furosemide [Lasix] 40 mg PO DAILY 03/19/16 [History] Gabapentin [Neurontin] 300 mg PO TID 03/19/16 [History] Lactobacillus Acidophilus [Probiotic] 1 tab PO DAILY 03/19/16 [History] Losartan Potassium [Cozaar] 100 mg PO DAILY 03/19/16 [History] Multivitamin [Multi-Day Vitamins] 0.5 tab PO BID 03/19/16 [History] Omeprazole [PriLOSEC] 40 mg PO DAILY 03/19/16 [History] Potassium Chloride [K-Tab ER] 20 meq PO DAILY 03/19/16 [History] Rivaroxaban [Xarelto] 20 mg PO DAILY 03/19/16 [History] Tizanidine HCl 8 mg PO HS 03/19/16 [History] Trazodone HCl 50 - 100 mg PO HS PRN 03/19/16 [History] Ondansetron [Zofran] 4 mg PO Q8HR PRN #15 tablet 03/23/16 [Rx] Amitriptyline [Elavil] 25 mg PO HS 07/16/17 [History] Cholecalciferol (D-3) [Vitamin D] 2,000 unit PO DAILY 07/16/17 [History] Ferrous Gluconate 324 mg PO BID 07/16/17 [History] Sotalol [Betapace] 80 mg PO Q12HR 07/16/17 [History] Tolterodine LA (24 HR) [Detrol LA] 2 mg PO DAILY 07/16/17 [History] Famotidine [Pepcid] 20 mg PO DAILY #30 tablet 07/19/17 [Rx] Melatonin 3 mg PO HS PRN #10 tablet 07/19/17 [Rx] Sucralfate [Carafate] 1 gm PO TIDAC #90 tablet 07/19/17 [Rx] Allergies/Adverse Reactions: 3 Allergy/AdvReac Type Severity Reaction Status Date / Time Sulfa (Sulfonamide Allergy See Verified 07/16/17 03:52 Antibiotics) Comments Procedures/tests Complete & Pending: Procedures Performed prior 72 hours Category Date Time Status NM rosa isela perf SPECT multi [NM] Routine Exams 07/17/17 15:11 Taken EV echocardiogram Routine Y 07/17/17 09:44 Completed SP pharm nuclear stress Routine Y 07/17/17 15:10 Completed Date of admission: 07/16/17 08:01 Primary care physician: Claudio Tate MD Consults: 07/16/17 10:02 Consult to Communications Director [CONS] Routine Reason for SW Consult: Advanced directives. Discharging clinician: Flakita Jacinto Anticipated date of discharge: 07/19/17 - Patient Status Disposition: Home, Self-Care Condition: Good Functional capacity at discharge: independent ambulation Overall status at discharge: patient is back to baseline - Discharge Instructions Follow Up With: [facility] [Provider Group] (Appointment web requested. Office to contact patient at home to schedule appointment. ) Claudio Tate MD [Primary Care Provider] - Additional Instructions: Please follow-up with primary care provider in the next 7-10 days. Please follow-up with GI as scheduled. New prescriptions have been called into your pharmacy. Resume normal home medications. Avoid spicy, fatty, fried foods. Eat smaller more frequent meals. Return to normal activities as tolerated. Return to the emergency department as needed for any other problems or concerns , or if symptoms return or worsen. - Diet and Activity Activity: increase activity as tolerated Diet: advance to your usual diet Hospital course: Ms. Busby is a 61 year old female - Time Spent with Patient Total time spent providing and/or coordinating discharge services: - Constitutional Vitals: Temp Pulse Resp BP Pulse Ox 97.9 F 59 17 163/82 96 07/19/17 07:34 07/19/17 07:34 07/19/17 07:34 07/19/17 07:34 07/19/17 07:34 General appearance: Present: cooperative, A&O X 3, morbidly obese, pleasant, no acute distress, answers questions appropriately - Head Head exam: Present: atraumatic, normal inspection, normocephalic - Eye Eye exam: Present: normal appearance, conjuntiva pink, sclera anicteric - Neck Neck exam general surgery: Present: supple, trachea midline. Absent: lymphadenopathy - Respiratory Respiratory exam: Present: CTAB. Absent: accessory muscle use, rales, rhonchi, wheezes - Cardiovascular Cardiovascular exam: Present: RRR, +S1, +S2. Absent: diastolic murmur, gallop, rubs, systolic murmur - GI/Abdominal GI/Abdominal exam: Present: normal bowel sounds, soft. Absent: distended, hernia, hepatomegaly, tenderness - Extremities Exam Extremities exam: Present: warm, radial pulses palpable and symmetrical. Absent : calf tenderness, cyanotic, pedal edema, tenderness - Neurological Exam Neurological exam: Present: alert, oriented X3, no focal deficits, pronater drift. Absent: facial droop, speech deficit - Skin Skin exam: Present: dry, intact, normal color, warm. Absent: rash
[2017-07-19] MEDS ORDERED: MOM Conc 10 ML UD.LIQ PO ONE (10:47)
[2017-07-19 11:14] VITALS: BP 154/74
[2017-07-20] MEDS ORDERED: Famotidine 20 MG TABLET PO SCH (09:00)
== END 2017-07-19 13:30 | disposition home or self-care (01) ==
LOC: 3BNU 03:51 → EMEROO 03:51 → 3BNU 09:14
PROVIDERS: ADMIT Pediatrics; ATTEND Registered Nurse

== ENCOUNTER 2019-07-31 09:45 | Observation (INO) ==
[2019-07-31 10:31] LABS: Basophils # 0.1 K/mcL (0.0-0.2); Basophils % 0.7 %; Eosinophils # 0.1 K/mcL (0.0-0.6); Eosinophils % 0.9 %; Hematocrit 39.7 % (35.3-44.9); Hemoglobin 13.1 g/dL (11.5-15.4); Immature Granulocytes % 0.4 % (0-4); Lymphocytes # 1.3 K/mcL (0.6-4.6); Lymphocytes % 16.5 %; Mean Corpuscular Hemoglobin 30.4 pg (28.0-33.3); Mean Corpuscular Volume 92.1 fL (83.0-100.0); Mean Platelet Volume 9.7 fL (9.4-12.4); Monocytes # 0.7 K/mcL (0.0-1.3); Monocytes % 9.5 %; Neutrophils # 5.5 K/mcL (1.6-8.9); Platelet Count 297 K/mcL (140-400); Red Blood Count 4.31 M/mcL (3.82-4.97); Red Cell Distribution Width 11.9 % (11.5-14.5); White Blood Count 7.6 K/mcL (4.3-11.1)
[2019-07-31 10:38] LABS: INR 1.1; Prothrombin Time 12.8 Seconds (9.4-12.1)
[2019-07-31] MEDS: Nitroglycerin 0.4 MG TAB.SUBL SL SCH ×3 (10:40→10:52)
[2019-07-31 10:41] LABS: Activated Partial Thrombo Time 33.4 Seconds (26.0-36.0)
[2019-07-31 10:48] LABS: BUN/Creatinine Ratio 19 (6-26); Blood Urea Nitrogen 19 mg/dL (8-23); Calcium 10.2 mg/dL (8.6-10.3); Carbon Dioxide 24 mEq/L (23-29); Chloride 103 mEq/L (98-107); Glucose 147 mg/dL (70-105); Osmolality,Calculated 295 (280-300); Potassium 3.5 mEq/L (3.5-5.1); Sodium 140 mEq/L (136-145); Troponin I < 0.03 ng/mL (< 0.04); eGFR For African Americans > 60 (> 60); eGFR For Non-African Americans 57 (> 60)
[2019-07-31] MEDS ORDERED: Ondansetron 4 MG/2 ML VIAL IVP ONE (11:19)
[2019-07-31] MEDS ORDERED: Morphine Sulfate 2 MG/ML SYRINGE IVP ONE (11:19)
[2019-07-31] MEDS ORDERED: Aspirin 325 MG TABLET PO ONE (12:14)
[2019-07-31] MEDS ORDERED: Morphine Sulfate 2 MG/ML SYRINGE IVP PRN (12:14)
[2019-07-31] MEDS ORDERED: Naloxone 0.4 MG/ML INJ IVP PRN (12:14)
[2019-07-31] MEDS ORDERED: 0.9 % Sodium Chloride 1,000 ML IVC SCH (12:15)
[2019-07-31] MEDS ORDERED: Famotidine 20 MG/2 ML VIAL IVP PRN (12:18)
[2019-07-31 13:29] LABS: Estimated Average Glucose 103 mg/dl
[2019-07-31] MEDS ORDERED: 0.9 % Sodium Chloride 2,000 ML ONE (15:59)
[2019-07-31] MEDS ORDERED: *HR* Heparin 10,000 UNIT/10 ML VIAL ONE (15:59)
[2019-07-31] MEDS ORDERED: Heparin 1,000 UNITS/500 mL 500 ML ONE (15:59)
[2019-07-31] MEDS ORDERED: ISOVUE-370 200 ML INFUS..BTL ONE (16:00)
[2019-07-31] MEDS ORDERED: Nitroglycerin 1,000 MCG/10 ML VIAL IV ONE (16:00)
[2019-07-31] MEDS ORDERED: *HR* Midazolam HCl 2 MG/2 ML VIAL ONE (16:25)
[2019-07-31] MEDS ORDERED: *HR* FentaNYL (PF) 100 MCG/2 ML VIAL ONE (16:25)
[2019-07-31] MEDS ORDERED: Perflutren Lipid Microsphere 1.3 ML in 0.9 % Sodium Chloride 8.7 ML IVP ONE (18:05)
[2019-07-31] MEDS ORDERED: Melatonin 3 MG TABLET PO PRN (18:45)
[2019-07-31] MEDS ORDERED: Acetaminophen 325 MG TABLET PO PRN (18:45)
[2019-07-31] MEDS ORDERED: ALPRAZolam 1 MG TABLET PO SCH (21:00)
[2019-08-01] MEDS: Nitroglycerin 0.4 MG TAB.SUBL SL PRN ×2 (00:57→05:00)
[2019-08-01] MEDS ORDERED: *HR* Promethazine 25 MG/ML VIAL IVP PRN (02:43)
[2019-08-01] MEDS ORDERED: Melatonin 3 MG TABLET PO ONE (03:19)
[2019-08-01 05:30] LABS: Basophils # 0.1 K/mcL (0.0-0.2); Basophils % 0.9 %; Eosinophils # 0.2 K/mcL (0.0-0.6); Eosinophils % 3.2 %; Hematocrit 36.1 % (35.3-44.9); Hemoglobin 11.8 g/dL (11.5-15.4); Immature Granulocytes % 0.4 % (0-4); Lymphocytes # 1.5 K/mcL (0.6-4.6); Lymphocytes % 28.3 %; Mean Corpuscular HGB Conc 32.7 g/dL (31.6-35.5); Mean Corpuscular Hemoglobin 30.6 pg (28.0-33.3); Mean Corpuscular Volume 93.5 fL (83.0-100.0); Mean Platelet Volume 9.9 fL (9.4-12.4); Monocytes # 0.6 K/mcL (0.0-1.3); Monocytes % 12.1 %; Neutrophils # 2.9 K/mcL (1.6-8.9); Platelet Count 246 K/mcL (140-400); Red Blood Count 3.86 M/mcL (3.82-4.97); Segmented Neutrophils % 55.1 %; White Blood Count 5.3 K/mcL (4.3-11.1)
[2019-08-01 05:34] LABS: INR 1.1
[2019-08-01 05:56] LABS: Alanine Aminotransferase 41 Units/L (7-52); Albumin 3.9 g/dL (3.5-5.7); Albumin/Globulin Ratio 1.6 (1.1-2.2); Alkaline Phosphatase 107 Units/L (34-104); Aspartate Amino Transferase 34 Units/L (13-39); BUN/Creatinine Ratio 18 (6-26); Bilirubin,Total 0.4 mg/dL (0.3-1.0); Blood Urea Nitrogen 16 mg/dL (8-23); Calcium 9.4 mg/dL (8.6-10.3); Carbon Dioxide 26 mEq/L (23-29); Chloride 107 mEq/L (98-107); Chol/HDL Ratio 3.9 (0-4.9); Cholesterol 176 mg/dL (< 200); Globulin 2.4 g/dL (2.4-3.5); Glucose 129 mg/dL (70-105); HDL Cholesterol 45 mg/dL (40-59); LDL Cholesterol,Calculated 99 mg/dL (0-99); Osmolality,Calculated 297 (280-300); Phosphorous 3.5 mg/dL (2.7-4.5); Potassium 3.3 mEq/L (3.5-5.1); Sodium 142 mEq/L (136-145); Total Protein 6.3 g/dL (6.4-8.9); Triglycerides 162 mg/dL (< 150); eGFR For African Americans > 60 (> 60); eGFR For Non-African Americans > 60 (> 60)
[2019-08-01 08:05] VITALS: BP 166/76
[2019-08-01] MEDS ORDERED: *HR* Rivaroxaban 15 MG TABLET PO SCH (21:00)
== END 2019-08-01 10:47 | disposition home or self-care (01) ==
LOC: EMEROOARM 09:45 → CDU 09:45 → SUATTDRO 11:58 → CDU 12:25 → 2ANU 17:16
PROVIDERS: ADMIT Internal Medicine; ATTEND Internal Medicine

== ENCOUNTER 2019-08-24 10:17 | Inpatient (IN) ==
[~2019-08-24 10:17] MED LIST: Acetaminophen IV 1,000 MG/100 ML INFUS..BTL IVPB ONE; Gabapentin 300 MG CAPSULE PO ONE
[2019-08-24] MEDS ORDERED: Famotidine 20 MG/2 ML VIAL IVP ONE (11:05)
[2019-08-24] MEDS ORDERED: *HR* Labetalol 20 MG/4 ML SYRINGE IVP PRN (11:07)
[2019-08-24] MEDS ORDERED: *HR* OxyCODONE Immed Rel 5 MG TABLET PO PRN (11:07)
[2019-08-24] MEDS ORDERED: *HR* Promethazine 25 MG/ML VIAL IVP PRN (11:07)
[2019-08-24] MEDS ORDERED: Ondansetron 4 MG/2 ML VIAL IVP PRN ×2 (11:07→16:10)
[2019-08-24] MEDS ORDERED: CeFAZolin Syr 2,000MG/20 ML 2,000 MG/20 ML SYRINGE IVPB ONE (11:24)
[2019-08-24] MEDS ORDERED: *HR* FentaNYL (PF) 100 MCG/2 ML VIAL ONE (11:26)
[2019-08-24] MEDS ORDERED: *HR* Propofol 200 MG/20 ML VIAL IVP ONE ×2 (11:26→13:28)
[2019-08-24] MEDS ORDERED: *HR* Midazolam HCl 2 MG/2 ML VIAL ONE (11:26)
[2019-08-24] MEDS ORDERED: Ondansetron 4 MG/2 ML VIAL ONE (11:29)
[2019-08-24] MEDS ORDERED: Lidocaine -MPF 2% 2 ML VIAL ONE (11:29)
[2019-08-24] MEDS ORDERED: Ringers Solution, Lactated 1,000 ML IVC SCH ×2 (11:30→16:10)
[2019-08-24] MEDS ORDERED: Ethanol\\Acetic Acid\\Na Ace\\Ben 1,000 ML IRRIG.SOLN IR ONE (12:13)
[2019-08-24] MEDS ORDERED: Ropivacaine/PF 0.5% 30 ML VIAL ONE (12:14)
[2019-08-24] MEDS ORDERED: *HR* PHENYLEPHRINE 1,000 MCG/10 ML SYRINGE IVP ONE (13:15)
[2019-08-24] MEDS ORDERED: EPHEDrine 50 MG/ML VIAL ONE (13:37)
[2019-08-24] MEDS: *HR* HYDROmorphone 2 MG/ML SYRINGE IVP PRN ×3 (15:13→15:33)
[2019-08-24 15:17] LABS: Hematocrit 33.9 % (35.3-44.9); Hemoglobin 11.1 g/dL (11.5-15.4)
[2019-08-24] MEDS ORDERED: Sennosides 8.6 MG TABLET PO PRN (16:10)
[2019-08-24] MEDS ORDERED: Temazepam 15 MG CAPSULE PO PRN (16:10)
[2019-08-24] MEDS ORDERED: Gabapentin 300 MG CAPSULE PO PRN (16:10)
[2019-08-24] MEDS ORDERED: MOM Conc 10 ML UD.LIQ PO PRN (16:10)
[2019-08-24] MEDS ORDERED: ALPRAZolam 1 MG TABLET PO PRN (16:10)
[2019-08-24] MEDS ORDERED: Naloxone 0.4 MG/ML INJ IVP PRN (16:10)
[2019-08-24] MEDS ORDERED: *HR* OxyCODONE/APAP 5/325 TABLET PO PRN (16:10)
[2019-08-24] MEDS: *HR* OxyCODONE Immed Rel 5 MG TABLET PO PRN (20:53)
[2019-08-24] MEDS ORDERED: *HR* Rivaroxaban 10 MG TABLET PO SCH (21:00)
[2019-08-24] MEDS ORDERED: hydrOXYzine pamoate 25 MG CAPSULE PO PRN (21:00)
[2019-08-24] MEDS ORDERED: CASCARA SAGRADA PO SCH (21:00)
[2019-08-24] MEDS ORDERED: rOPINIRole 1 MG TABLET PO SCH (21:00)
[2019-08-24] MEDS ORDERED: [UNRECOGNIZED DRUG - OTHER] PO SCH (21:00)
[2019-08-24] MEDS: Nitroglycerin 0.4 MG TAB.SUBL SL PRN ×2 (21:06→21:19)
[2019-08-24] MEDS ORDERED: Aspirin 81 MG TAB.CHEW PO STA (21:29)
[2019-08-24] MEDS ORDERED: Morphine Sulfate 2 MG/ML SYRINGE IVP ONE (21:35)
[2019-08-24 22:20] LABS: Basophils # 0.1 K/mcL (0.0-0.2); Basophils % 0.5 %; Eosinophils # 0.1 K/mcL (0.0-0.6); Eosinophils % 0.9 %; Hematocrit 31.4 % (35.3-44.9); Hemoglobin 10.2 g/dL (11.5-15.4); Immature Granulocytes % 0.2 % (0-4); Lymphocytes # 1.6 K/mcL (0.6-4.6); Lymphocytes % 16.2 %; Mean Corpuscular HGB Conc 32.5 g/dL (31.6-35.5); Mean Corpuscular Hemoglobin 30.4 pg (28.0-33.3); Mean Corpuscular Volume 93.7 fL (83.0-100.0); Mean Platelet Volume 10.3 fL (9.4-12.4); Monocytes # 0.9 K/mcL (0.0-1.3); Monocytes % 8.7 %; Neutrophils # 7.4 K/mcL (1.6-8.9); Platelet Count 281 K/mcL (140-400); Red Blood Count 3.35 M/mcL (3.82-4.97); Red Cell Distribution Width 11.8 % (11.5-14.5); Segmented Neutrophils % 73.5 %; White Blood Count 10.1 K/mcL (4.3-11.1)
[2019-08-24 22:38] LABS: Alanine Aminotransferase 49 Units/L (7-52); Albumin 3.6 g/dL (3.5-5.7); Albumin/Globulin Ratio 1.7 (1.1-2.2); Alkaline Phosphatase 98 Units/L (34-104); Aspartate Amino Transferase 69 Units/L (13-39); BUN/Creatinine Ratio 17 (6-26); Bilirubin,Total 0.3 mg/dL (0.3-1.0); Blood Urea Nitrogen 18 mg/dL (8-23); Calcium 9.1 mg/dL (8.6-10.3); Carbon Dioxide 24 mEq/L (23-29); Chloride 106 mEq/L (98-107); Globulin 2.1 g/dL (2.4-3.5); Glucose 126 mg/dL (70-105); Magnesium 1.9 mg/dL (1.6-2.6); Osmolality,Calculated 289 (280-300); Potassium 3.9 mEq/L (3.5-5.1); Sodium 138 mEq/L (136-145); Thyroid Stimulating Hormone 3.061 mcIU/mL (0.340-5.600); Total Protein 5.7 g/dL (6.4-8.9); Troponin I < 0.03 ng/mL (< 0.04); eGFR For African Americans > 60 (> 60); eGFR For Non-African Americans 51 (> 60)
[2019-08-24] MEDS ORDERED: GI Cocktail 40 ML EACH PO ONE (22:48)
[2019-08-25] MEDS: *HR* OxyCODONE Immed Rel 5 MG TABLET PO PRN ×2 (00:54→05:10)
[2019-08-25] MEDS ORDERED: Morphine Sulfate 2 MG/ML SYRINGE IVP ONE (01:55)
[2019-08-25 06:25] LABS: Hematocrit 30.7 % (35.3-44.9); Hemoglobin 10.2 g/dL (11.5-15.4)
[2019-08-25] MEDS ORDERED: Gabapentin 300 MG CAPSULE PO PRN (06:26)
[2019-08-25] MEDS ORDERED: ALPRAZolam 1 MG TABLET PO PRN (06:29)
[2019-08-25 06:43] LABS: BUN/Creatinine Ratio 18 (6-26); Blood Urea Nitrogen 15 mg/dL (8-23); Calcium 8.8 mg/dL (8.6-10.3); Carbon Dioxide 26 mEq/L (23-29); Chloride 104 mEq/L (98-107); Glucose 135 mg/dL (70-105); Osmolality,Calculated 287 (280-300); Potassium 3.9 mEq/L (3.5-5.1); Sodium 137 mEq/L (136-145); eGFR For African Americans > 60 (> 60); eGFR For Non-African Americans > 60 (> 60)
[2019-08-25] MEDS ORDERED: Loratadine 10 MG TABLET PO SCH (09:00)
[2019-08-25] MEDS ORDERED: Diltiazem CD (24hr) 240 MG CAPSULE PO SCH (09:00)
[2019-08-25] MEDS ORDERED: Aspirin Enteric Coated 81 MG Tablet PO SCH (09:00)
[2019-08-25] MEDS ORDERED: Furosemide 40 MG TABLET PO SCH (09:00)
[2019-08-25] MEDS ORDERED: Tolterodine LA (24 HR) 2 MG CAP.ER.24H PO SCH (09:00)
[2019-08-25] MEDS ORDERED: Isosorbide MONOnitrate (24 HR) 30 MG TAB.ER.24H PO SCH (09:00)
[2019-08-25] MEDS ORDERED: BuPROPion SR (12 HR) 150 MG TABLET PO SCH (09:00)
[2019-08-25] MEDS ORDERED: Benzonatate 100 MG CAPSULE PO PRN (10:52)
[2019-08-25] MEDS ORDERED: tiZANidine 4 MG TABLET PO PRN (11:04)
[2019-08-25 11:10] VITALS: BP 113/73
== END 2019-08-25 13:13 | disposition home health service (06) | DRG 483 ==
LOC: SAMDAY 10:17 → 3NENU 16:14
PROVIDERS: ADMIT Orthopaedic Surgery; ATTEND Orthopaedic Surgery

== ENCOUNTER 2019-08-26 14:50 | Observation (INO) ==
[2019-08-26] MEDS ORDERED: Isovue-370 500 ML BOTTLE IVP ONE (15:55)
[2019-08-26] MEDS ORDERED: *HR* FentaNYL (PF) 100 MCG/2 ML VIAL IVP ONE (15:58)
[2019-08-26] MEDS ORDERED: *HR* Promethazine 25 MG/ML VIAL IVP STA (16:07)
[2019-08-26 16:32] LABS: Basophils % 0.3 %; Eosinophils # 0.2 K/mcL (0.0-0.6); Eosinophils % 1.7 %; Hematocrit 31.9 % (35.3-44.9); Hemoglobin 10.3 g/dL (11.5-15.4); Immature Granulocytes % 0.3 % (0-4); Lymphocytes # 1.3 K/mcL (0.6-4.6); Lymphocytes % 13.7 %; Mean Corpuscular HGB Conc 32.3 g/dL (31.6-35.5); Mean Corpuscular Volume 96.1 fL (83.0-100.0); Mean Platelet Volume 10.2 fL (9.4-12.4); Monocytes # 1.1 K/mcL (0.0-1.3); Monocytes % 11.5 %; Platelet Count 242 K/mcL (140-400); Red Blood Count 3.32 M/mcL (3.82-4.97); Red Cell Distribution Width 11.5 % (11.5-14.5); Segmented Neutrophils % 72.5 %; White Blood Count 9.6 K/mcL (4.3-11.1)
[2019-08-26 16:54] LABS: BUN/Creatinine Ratio 13 (6-26); Blood Urea Nitrogen 9 mg/dL (8-23); Calcium 9.5 mg/dL (8.6-10.3); Carbon Dioxide 26 mEq/L (23-29); Chloride 102 mEq/L (98-107); Glucose 98 mg/dL (70-105); Osmolality,Calculated 283 (280-300); Potassium 3.3 mEq/L (3.5-5.1); Sodium 137 mEq/L (136-145); Troponin I < 0.03 ng/mL (< 0.04); eGFR For African Americans > 60 (> 60); eGFR For Non-African Americans > 60 (> 60)
[2019-08-26] MEDS ORDERED: Piperacillin/Tazobactam 3.375 GM in Water for inj. (sterile) 20 ML IVP ONE (17:06)
[2019-08-26] MEDS ORDERED: Naloxone 0.4 MG/ML INJ IVP PRN (20:44)
[2019-08-26] MEDS ORDERED: *HR* HYDROcodone/Acet 5/325 mg TABLET PO PRN (20:44)
[2019-08-26] MEDS ORDERED: Gabapentin 300 MG CAPSULE PO PRN (20:48)
[2019-08-26 21:09] LABS: Magnesium 1.9 mg/dL (1.6-2.6)
[2019-08-26] MEDS: Ondansetron 4 MG/2 ML VIAL IVP PRN (21:48)
[2019-08-26] MEDS: 0.9 % Sodium Chloride 1,000 ML IVC SCH (21:50)
[2019-08-26] MEDS: Morphine Sulfate 2 MG/ML SYRINGE IVP PRN (21:51)
[2019-08-26] MEDS: rOPINIRole 1 MG TABLET PO SCH (21:51)
[2019-08-26] MEDS: *HR* Rivaroxaban 10 MG TABLET PO SCH (21:51)
[2019-08-26] MEDS: Piperacillin/Tazobactam 3.375 GM in 0.9 % Sodium Chloride Mini Bag 100 ML IVPB SCH (22:52)
[2019-08-26] MEDS: ALPRAZolam 1 MG TABLET PO PRN (22:52)
[2019-08-27] MEDS: Morphine Sulfate 2 MG/ML SYRINGE IVP PRN ×2 (02:43→06:44)
[2019-08-27 05:23] LABS: Basophils % 0.3 %; Eosinophils # 0.1 K/mcL (0.0-0.6); Eosinophils % 1.7 %; Hematocrit 29.5 % (35.3-44.9); Hemoglobin 9.6 g/dL (11.5-15.4); Immature Granulocytes % 0.1 % (0-4); Lymphocytes % 14.8 %; Mean Corpuscular HGB Conc 32.5 g/dL (31.6-35.5); Mean Corpuscular Volume 95.2 fL (83.0-100.0); Mean Platelet Volume 10.4 fL (9.4-12.4); Monocytes # 0.8 K/mcL (0.0-1.3); Monocytes % 11.8 %; Neutrophils # 4.9 K/mcL (1.6-8.9); Platelet Count 203 K/mcL (140-400); Red Cell Distribution Width 11.6 % (11.5-14.5); Segmented Neutrophils % 71.3 %; White Blood Count 6.9 K/mcL (4.3-11.1)
[2019-08-27 05:44] LABS: BUN/Creatinine Ratio 12 (6-26); Blood Urea Nitrogen 8 mg/dL (8-23); Calcium 9.2 mg/dL (8.6-10.3); Carbon Dioxide 29 mEq/L (23-29); Chloride 101 mEq/L (98-107); Glucose 110 mg/dL (70-105); Osmolality,Calculated 287 (280-300); Potassium 3.3 mEq/L (3.5-5.1); Sodium 139 mEq/L (136-145); eGFR For African Americans > 60 (> 60); eGFR For Non-African Americans > 60 (> 60)
[2019-08-27] MEDS: Ondansetron 4 MG/2 ML VIAL IVP PRN (08:44)
[2019-08-27] MEDS: Piperacillin/Tazobactam 3.375 GM in 0.9 % Sodium Chloride Mini Bag 100 ML IVPB SCH ×3 (08:46→23:38)
[2019-08-27] MEDS ORDERED: BuPROPion SR (12 HR) 150 MG TABLET PO SCH (09:00)
[2019-08-27] MEDS ORDERED: Ketorolac 15 MG/ML VIAL IM PRN (09:45)
[2019-08-27] MEDS: ALPRAZolam 1 MG TABLET PO PRN (09:46)
[2019-08-27] MEDS: Diltiazem CD (24hr) 240 MG CAPSULE PO SCH (09:50)
[2019-08-27] MEDS: Isosorbide MONOnitrate (24 HR) 30 MG TAB.ER.24H PO SCH (09:50)
[2019-08-27] MEDS: BuPROPion SR (12 HR) 150 MG TABLET PO SCH (09:50)
[2019-08-27] MEDS: Loratadine 10 MG TABLET PO SCH ×2 (09:57→12:37)
[2019-08-27] MEDS ORDERED: *HR* Promethazine 25 MG/ML VIAL IVP PRN (10:36)
[2019-08-27] MEDS ORDERED: diazePAM 5 MG TABLET PO ONE (10:42)
[2019-08-27] MEDS ORDERED: tiZANidine 4 MG TABLET PO PRN (12:00)
[2019-08-27] MEDS: 0.9 % Sodium Chloride 1,000 ML IVC SCH (12:36)
[2019-08-27] MEDS: Sennosides/Docusate Sodium TABLET PO SCH ×2 (13:42→21:28)
[2019-08-27] MEDS: Aspirin Enteric Coated 81 MG Tablet PO SCH (13:42)
[2019-08-27] MEDS: Acetaminophen IV 1,000 MG/100 ML INFUS..BTL IVPB SCH ×2 (13:49→20:09)
[2019-08-27] MEDS: Gabapentin 300 MG CAPSULE PO SCH ×2 (16:36→21:28)
[2019-08-27] MEDS ORDERED: hydrOXYzine pamoate 25 MG CAPSULE PO SCH (18:00)
[2019-08-27] MEDS: rOPINIRole 1 MG TABLET PO SCH (21:28)
[2019-08-27] MEDS: *HR* Rivaroxaban 10 MG TABLET PO SCH (21:28)
[2019-08-28 02:34] LABS: Basophils # 0.1 K/mcL (0.0-0.2); Basophils % 0.8 %; Eosinophils # 0.3 K/mcL (0.0-0.6); Hematocrit 27.5 % (35.3-44.9); Hemoglobin 8.8 g/dL (11.5-15.4); Immature Granulocytes % 0.3 % (0-4); Lymphocytes # 1.3 K/mcL (0.6-4.6); Lymphocytes % 21.1 %; Mean Corpuscular Hemoglobin 31.2 pg (28.0-33.3); Mean Corpuscular Volume 97.5 fL (83.0-100.0); Mean Platelet Volume 10.4 fL (9.4-12.4); Monocytes # 0.8 K/mcL (0.0-1.3); Monocytes % 12.3 %; Neutrophils # 3.7 K/mcL (1.6-8.9); Platelet Count 236 K/mcL (140-400); Red Blood Count 2.82 M/mcL (3.82-4.97); Red Cell Distribution Width 11.7 % (11.5-14.5); Segmented Neutrophils % 60.5 %; White Blood Count 6.2 K/mcL (4.3-11.1)
[2019-08-28 02:44] LABS: Magnesium 1.9 mg/dL (1.6-2.6); Phosphorous 2.6 mg/dL (2.7-4.5)
[2019-08-28 02:45] LABS: BUN/Creatinine Ratio 14 (6-26); Blood Urea Nitrogen 11 mg/dL (8-23); Calcium 8.9 mg/dL (8.6-10.3); Carbon Dioxide 26 mEq/L (23-29); Chloride 102 mEq/L (98-107); Glucose 117 mg/dL (70-105); Osmolality,Calculated 280 (280-300); Potassium 3.7 mEq/L (3.5-5.1); Sodium 135 mEq/L (136-145); eGFR For African Americans > 60 (> 60); eGFR For Non-African Americans > 60 (> 60)
[2019-08-28] MEDS: Acetaminophen IV 1,000 MG/100 ML INFUS..BTL IVPB SCH ×2 (04:10→11:49)
[2019-08-28] MEDS: Loratadine 10 MG TABLET PO SCH (09:23)
[2019-08-28] MEDS: Aspirin Enteric Coated 81 MG Tablet PO SCH (09:23)
[2019-08-28] MEDS: Diltiazem CD (24hr) 240 MG CAPSULE PO SCH (09:23)
[2019-08-28] MEDS: BuPROPion SR (12 HR) 150 MG TABLET PO SCH (09:23)
[2019-08-28] MEDS: Isosorbide MONOnitrate (24 HR) 30 MG TAB.ER.24H PO SCH (09:24)
[2019-08-28] MEDS: Piperacillin/Tazobactam 3.375 GM in 0.9 % Sodium Chloride Mini Bag 100 ML IVPB SCH (09:24)
[2019-08-28] MEDS: Gabapentin 300 MG CAPSULE PO SCH (09:25)
[2019-08-28] MEDS: Sennosides/Docusate Sodium TABLET PO SCH (09:43)
[2019-08-28 12:13] VITALS: BP 114/68
== END 2019-08-28 14:41 | disposition home health service (06) ==
LOC: EMEROOARM 14:50 → 3BNU 14:50 → SUATTDRO 19:58 → 3BNU 20:45
PROVIDERS: ADMIT Internal Medicine; ATTEND Internal Medicine

== ENCOUNTER 2019-11-21 03:15 | Observation (INO) ==
[2019-11-21] MEDS ORDERED: Naloxone 0.4 MG/ML INJ IVP PRN ×2 (05:57→05:58)
[2019-11-21] MEDS ORDERED: Nitroglycerin 0.4 MG TAB.SUBL SL PRN (06:53)
[2019-11-21] MEDS ORDERED: Ondansetron ODT 4 MG TAB.RAPDIS PO PRN (06:53)
[2019-11-21] MEDS: D5% in 0.9% NACL 1,000 ML IVC SCH ×2 (08:02→21:45)
[2019-11-21 08:24] LABS: BUN/Creatinine Ratio 16 (6-26); Blood Urea Nitrogen 15 mg/dL (8-23); Calcium 8.8 mg/dL (8.6-10.3); Carbon Dioxide 22 mEq/L (23-29); Chloride 111 mEq/L (98-107); Glucose 85 mg/dL (70-105); Osmolality,Calculated 290 (280-300); Sodium 140 mEq/L (136-145); eGFR For African Americans > 60 (> 60); eGFR For Non-African Americans > 60 (> 60)
[2019-11-22] MEDS ORDERED: Melatonin 3 MG TABLET PO SCH (01:00)
[2019-11-22 06:35] VITALS: BP 156/52
== END 2019-11-22 11:35 ==
LOC: 3BNU 03:15 → EMEROOARM 03:15 → SUATTDRO 05:15 → 3BNU 05:46
PROVIDERS: ADMIT Internal Medicine; ATTEND Student in an Organized Health Care Education/Training Program

== ENCOUNTER → 2019-11-23 12:25 | Observation (INO) ==
[2019-11-23 08:44] VITALS: BP 182/92
[~2019-11-23 12:25] MED LIST changes: +*HR* LORazepam 1 MG TABLET PO PRN; +*HR* LORazepam 2 MG/ML VIAL IM PRN; +*HR* Rivaroxaban 10 MG TABLET PO SCH; +ALPRAZolam 1 MG TABLET PO ONE; +ALPRAZolam 1 MG TABLET PO PRN; +Acetaminophen 325 MG TABLET PO ONE; +Acetaminophen 325 MG TABLET PO PRN; -Acetaminophen IV 1,000 MG/100 ML INFUS..BTL IVPB ONE; +Aspirin Enteric Coated 81 MG Tablet PO SCH; +BuPROPion SR (12 HR) 150 MG TABLET PO SCH; +DilTIAZem CD (24hr) 240 MG CAP.ER.24H PO SCH; +FLU Vac QV 19-20 (6Month+)/PF 0.5 ML SYRINGE IM ONE; +Furosemide 40 MG TABLET PO SCH; -Gabapentin 300 MG CAPSULE PO ONE; +Haloperidol Lactate 5 MG/ML VIAL IM PRN; +Loratadine 10 MG TABLET PO SCH; +MOM Conc 10 ML UD.LIQ PO PRN; +Mag Hydrox/Al Hydrox/Simeth 30 ML UDC PO PRN; +Melatonin 3 MG TABLET PO SCH; +Nitroglycerin 0.4 MG TAB.SUBL SL PRN; +Ondansetron ODT 4 MG TAB.RAPDIS PO PRN; +Tolterodine LA (24 HR) 4 MG CAP.ER.24H PO SCH; +haloperidoL 5 MG TABLET PO PRN; +hydrOXYzine pamoate 25 MG CAPSULE PO PRN; +rOPINIRole 1 MG TABLET PO SCH; +traZODone 50 MG TABLET PO PRN
== END | disposition home or self-care (01) ==
LOC: 1ANU
PROVIDERS: ADMIT Psychiatry & Neurology Psychiatry; ATTEND Psychiatry & Neurology Psychiatry